=== PATIENT | female | born 1945 | race Caucasian/White ===

== ENCOUNTER 2018-06-12 13:29 | Emergency (ER) | payer MEDICARE ==
[~2018-06-12] VITALS: Ht 157.5 cm; Wt 65.5 kg
[~2018-06-12 13:29] MED LIST: ASPI-535 PO; CARV6.2579 PO; GLIMEPIRIDE; LISINOPRIL; LOSA50TA2 PO; METFORMIN; NIFE30TA8 PO; ZOC10 PO
[2018-06-12 13:31] VITALS: Ht 157.5 cm; Wt 65.5 kg
[2018-06-12 13:58] VITALS: BP 176/87; PULSE 76; RESP 18
[2018-06-12] MEDS ORDERED: ASPI-903 PO (14:41)
[2018-06-12] MEDS ORDERED: BEN20I IM (14:42)
[2018-06-12] MEDS ORDERED: DICY10CA40 PO (14:42)
[2018-06-12] MEDS ORDERED: METF-849 PO (14:43)
[2018-06-12] MEDS ORDERED: LOSA100T15 PO (14:43)
[2018-06-12] MEDS ORDERED: GABA300C16 PO (14:44)
[2018-06-12] MEDS ORDERED: SITA50TA2 PO (14:44)
[2018-06-12] MEDS ORDERED: ONDA4TAB95 PO (14:44)
[2018-06-12] MEDS ORDERED: SIMV40TA2 PO (14:45)
--- NOTE | 2018-06-12 15:42 | ERD ---
ER Documentation Chief Complaint Chief Complaint GROUND LEVEL FALL YESTERDAY HEMATOMA/SWELLING TO LEFT EYE. DIZZINESS +KO HPI This is a 72-year-old female with a past medical history of hypertension, hyperlipidemia, diabetes, coronary artery disease status post CABG, congestive heart failure who is presenting with left periorbital bruising, a mild frontal left-sided headache and slight lightheadedness beginning yesterday after a mechanical fall. The patient was walking when she tripped. She fell forward landing on her knees, left shoulder and face. She reports a few second loss of consciousness. She does report a mild left-sided frontal headache and has bruising to the left side of her face. She does not endorse any vision changes. She is able to range her eyes fully in all directions. She does endorse left-sided paraspinal neck soreness but no midline cervical spine tenderness. She does not endorse any back pain. She does complain of mild bilateral knee soreness and an abrasion to the left knee. She is able to range both knees without issue and has been ambulatory since the incident. The patient also endorses left shoulder pain, but again she has full range of motion to the left shoulder as well. She endorses mild left-sided rib pain but no other chest pain or shortness of breath. The patient denies feeling sick recently. The patient denies fever or chills. The patient denies nausea or vomiting. The patient denies abdominal pain. The patient denies changes to bowel movements or urination. The patient has had no focal deficits. The patient has had no weakness or numbness or tingling to the face or extremities. ROS All systems reviewed and are negative except as per history of present illness. Medications Home Meds Reported Medications Simvastatin* (Zocor*) 40 Mg Tablet, 40 MG PO QHS, #30 TAB 06/12/18 Ondansetron Hcl* (Ondansetron Hcl*) 4 Mg Tablet, 4 MG PO Q8 PRN for NAUSEA AND/OR VOMITING, TAB 06/12/18 Gabapentin* (Gabapentin*) 300 Mg Capsule, 300 MG PO TID, #90 CAP 06/12/18 Sitagliptin* (Januvia*) 50 Mg Tablet, 50 MG PO DAILY, #30 TAB 06/12/18 Metformin* (Glucophage*) 500 Mg Tab, 500 MG PO BID, #90 TAB 06/12/18 Losartan Potassium* (Losartan Potassium*) 100 Mg Tablet, 100 MG PO DAILY, TAB 06/12/18 Dicyclomine HCl (Dicyclomine HCl) 10 Mg Capsule, 10 MG PO DAILY PRN for ABDOMINAL PAIN 06/12/18 Aspirin* (Aspirin* Chew) 81 Mg Tab.chew, 81 MG PO DAILY, TAB.CHEW 06/12/18 Discontinued Reported Medications Dicyclomine Hcl* (Bentyl*) 10 Mg/Ml Soln, 20 MG IM, AMP 06/12/18 Aspirin Ec (Aspir 81) 81 Mg Tablet.dr, 81 MG PO DAILY 03/17/12 Losartan Potassium* (Cozaar*) 50 Mg Tablet, 50 MG PO DAILY 03/17/12 Carvedilol* (Carvedilol*) 6.25 Mg Tablet, 6.25 MG PO BID 03/17/12 Nifedipine (Nifedical XL*) 30 Mg/Bottle Tab.osm.24, 30 MG PO DAILY 03/17/12 Simvastatin (Simvastatin) 10 Mg Tablet, 10 MG PO DAILY 03/17/12 [Lisinopril] No Conflict Check 03/02/12 [Glimepiride] No Conflict Check 03/02/12 [Metformin] No Conflict Check 03/02/12 Allergies Allergies: Coded Allergies: Penicillins (Verified Allergy, Mild, rash and vomiting, 03/18/12) morphine (Verified Allergy, Mild, rash and vomiting, 03/18/12) diazepam (Verified Allergy, 03/03/12) Uncoded Allergies: PENICILLIN (Allergy, 03/03/12) PMhx/Soc History of Surgery: No Anesthesia Reaction: No Hx Neurological Disorder: No Hx Respiratory Disorders: No Hx Cardiac Disorders: Yes (HTN, CHF) Hx Psychiatric Problems: No Hx Miscellaneous Medical Probl: Yes (DM, Htn, hyperlipidemia, recent syncope) Hx Alcohol Use: No Hx Substance Use: No Hx Tobacco Use: No Smoking Status: Never smoker FmHx Family History: No diabetes Physical Exam Vitals Vital Signs Date Temp Pulse Resp B/P (MAP) Pulse Ox O2 O2 Flow FiO2 Time Delivery Rate 06/12/18 76 18 176/87 100 Room Air 13:58 (116) 06/12/18 98.8 13:31 Physical Exam Const: No apparent distress, well-developed, well-nourished Head: Normocephalic. Left-sided periorbital ecchymosis. No zepeda sign. Eyes: Normal Conjunctiva. Extraocular movements intact. Pupils equal, round and reactive to light ENT: Normal External Ears, Nose and Mouth. No hemotympanum. Neck: Full range of motion. No meningismus. Resp: Clear to auscultation bilaterally, No wheezes, rales or rhonchi Cardio: Regular rate and rhythm. No murmurs, rubs or gallops Abd: Soft, non tender, non distended. Normal bowel sounds Skin: No petechiae or rashes. Abrasion to the left knee. Back: No midline tenderness. No CVA tenderness Ext: No cyanosis, or edema. Full range of motion to the left shoulder, left knee, right knee Neur: Awake and alert, oriented 4. Cranial nerves intact. No facial droop. Normal strength, sensation and coordination. Psych: Normal Mood and Affect Procedures/MDM MDM The patient's presentation warrants further investigation. Previous medical records, if available, were reviewed. IMAGING Imaging and Radiology interpretation reviewed. CT Head COMPARISON: 03/17/2012 FINDINGS: No acute intracranial hemorrhage is identified. No extra-axial fluid collection is seen. There is no mass effect. No midline shift is identified. The ventricles and sulci are unremarkable. There is no hydrocephalus. A small chronic lacunar infarct is now identified in the right frontal deep white matter. Valente-white junctions are preserved. Atherosclerotic calcifications of the proximal intracranial arteries are noted. Calvarium and skull base are intact. Mastoid air cells and imaged paranasal sinuses grossly clear. IMPRESSION: No evidence of acute intracranial pathology. Chronic right frontal lacunar infarct. Electronically viewed and signed by .Eh Knox MD, on 06/12/2018 14:33 Ct Cervical Spine COMPARISON: CT angiogram neck 03/03/2012 FINDINGS: No acute fracture of the cervical spine. Straightening of the normal lordosis without significant vertebral body subluxation or acute appearing malalignment. Prevertebral soft tissue swelling or foreign body. Mild multilevel disc space narrowing with tiny disc protrusions, however no significant spinal canal stenosis. No significant foraminal narrowing. Moderate calcified arterial atherosclerosis. Interstitial opacities in the lung apices, may be related to central venous congestion. IMPRESSION: No acute fracture of the cervical spine. Straightening of the normal lordosis may be positional or related to muscle spasm. Electronically viewed and signed by Physician Shawn on 06/12/2018 14:37 CXR FINDINGS: The heart is within normal limits. The thoracic aorta is calcified. The patient is status post sternotomy. There are mild left lower lobe linear atelectatic changes. The lungs are otherwise clear. There is no pleural effusion or pneumothorax. IMPRESSION: Mild left lower lobe linear atelectatic changes. Calcified aorta consistent with atherosclerotic disease. Electronically viewed and signed by .Govind Sharpe MD, MD on 06/12/2018 15:11 XR R Shoulder FINDINGS: There are mild degenerative changes involving the acromioclavicular joint with mild joint space narrowing. There is normal osseous mineralization and alignment. No fracture or osseous lesion is identified. The soft tissues are unremarkable. IMPRESSION: Mild degenerative changes of the acromioclavicular joint. Electronically viewed and signed by .Govind Sharpe MD, MD on 06/12/2018 15:11 TREATMENT/DISPOSITION The patient presents after a trauma. She had a mechanical ground-level fall. She endorses a brief few second loss of consciousness after the event, but she was not dizzy or lightheaded prior to the event. The patient's symptoms are not consistent with syncope and I do not feel she requires a syncopal workup. The patient was evaluated fully without evidence of emergent posttraumatic pathology. The patient's CT imaging of the head and cervical spine are unremarkable. The patient has no focal deficits. I've low suspicion for intracranial pathology. I have low suspicion for cerebral ischemia or intracranial hemorrhage. The patient's symptoms are consistent with a possible concussion. At this time, I believe her symptoms to be stable. She may follow- up in an outpatient setting. She is ambulatory without issue. She does not h ave vertiginous symptoms. The patient has no cervical spine tenderness. He can move his neck in all directions without any pain. As stated above, he does not have any focal deficits. He is not altered or intoxicated. He does not have any distracting injuries. The patient's cervical spine was clinically cleared using the Nexus C- spine rule. The patient does not have any saddle anesthesia. He has not been incontinent of urine or stool. He has not had any retention of urine or stool. I have low suspicion for spinal cord injury. The patient's chest x-ray does not reveal any evidence of pneumonia or pneumothorax or pulmonary edema or pleural effusion. The patient's cardiomediastinal silhouette is unremarkable. I do not suspect pericardial effusion. I do not see any mediastinal free air. I have low suspicion for esophageal tear or rupture. The patient does not have a widened mediastinum. The patient does not have chest pain radiating to the back. It does not have a sharp or tearing quality. I have low suspicion for thoracic aortic aneurysm or rupture or dissection. The patient's symptoms are not consistent with pulmonary embolism. The patient does not have any abdominal pain. I have low suspicion for posttraumatic intra-abdominal pathology. The patient's vital signs are unremarkable. I low suspicion for hepatic or splenic or renal trauma. The patient does not have any GI or urinary bleeding. I decreased suspicion for intestinal injury. I have low suspicion for urethral injury. I have low suspicion for extremity injury. There is no evidence of any penetrating injuries. Upon reevaluation of the patient, symptoms have improved. No emergent diagnoses were identified. At this time, I feel that the patient stable for discharge. The patient was instructed to follow-up with a primary care physician in 1-3 days. The patient will be given strict precautions with which to return to the emergency department. Prescriptions: Tylenol The patient's blood pressure was elevated at greater than 120/80 while in the emergency department. The patient was otherwise stable with no evidence of hypertensive urgency or emergency. The patient does not require admission for blood pressure control. I have discussed with the patient the risks of hypertension. I have instructed the patient to return to the ER for any new or worsening symptoms including chest pain, shortness of breath, headache, blurred vision, confusion, nausea, vomiting or LOC. I have advised the patient to follow up with the primary care physician for outpatient monitoring and treatment for hypertension in 1-3 days. Disclaimer: Inadvertent spelling and grammatical errors are likely due to EHR/di ctation software use and do not reflect on the overall quality of patient care. Note that the electronic time recorded on this note does not necessarily reflect the actual time of the patient encounter. Departure Diagnosis: Primary Impression: Fall from ground level Additional Impressions: Head trauma Encounter type: initial encounter Qualified Codes: S09.90XA - Unspecified injury of head, initial encounter Concussion Encounter type: initial encounter Loss of consciousness presence/duration: with LOC of 30 min or less Qualified Codes: S06.0X1A - Concussion with loss of consciousness of 30 minutes or less, initial encounter Periorbital ecchymosis of left eye Encounter type: initial encounter Qualified Codes: S00.12XA - Contusion of left eyelid and periocular area, initial encounter Neck pain Left shoulder pain Chronicity: acute Qualified Codes: M25.512 - Pain in left shoulder Bilateral knee pain Chronicity: acute Qualified Codes: M25.561 - Pain in right knee; M25.562 - Pain in left knee Rib pain on left side Condition: Stable Patient Instructions: Concussion, Fall, Mechanical, Rib Contusion Additional Instructions: Thank you for for coming to [facility] [place] for your care today. Please ask your nurse or provider if you have questions about your care today and do not leave until all your questions have been answered. Please use any medications given as directed and follow-up with your doctor (or the doctor you were referred to) in the next 1-3 days. If you do not have a primary care doctor you may follow up at the [facility] [place], [place] or formerly [facility] (listed below). You may also use motrin and tylenol as needed for fever and/or pain unless instructed otherwise by your provider or nurse. Indications for more urgent follow-up have been discussed, but you may return to the Emergency Department at ANY time for any worrisome or worsening symptoms. If you have abdominal pain, please know that no test or exam you received is perfect and you should follow up within 8 hours for continued pain. If you had any imaging studies today, such as an X-Ray or CT Scan, these studies will be reviewed later by a radiologist. You will be called if there are important findings that were not identified today, so make sure the contact information you provided at registration is correct. If you received any narcotic pain control medicine today, such as Vicodin, Morphine or Dilaudid, your coordination and judgment may be affected for a number of hours. Please do not drive or operate heavy machinery, and you may want someone to assist you at home. If you were given a prescription for narcotic medication, be aware that it is very addictive- use sparingly and only if necessary. PLEASE SEEK FURTHER EVALUATION AND MANAGEMENT AT YOUR DOCTORS OFFICE WITHIN THE NEXT 1-3 DAYS. IT IS YOUR RESPONSIBILITY TO MAKE AN APPOINTMENT FOR FOLOW-UP CARE. IF YOU HAVE A PRIMARY DOCTOR, PLEASE CALL THEIR OFFICE TO SCHEDULE AN APPOINTMENT FOR FOLLOW UP. IF YOU DO NOT HAVE A PRIMARY DOCTOR YOU CAN CALL OUR PHYSICIAN REFERRAL HOTLINE AT IF YOU CAN NOT AFFORD TO SEE A PHYSICIAN YOU CAN CHOSE FROM THE FOLLOWING [facility] CLINICS: [facility] [address] [facility] [address] [facility]. [facility] [address] [facility] [address] [facility] [address] [facility]. [facility]. [address] MAURICE KEBEDE MD Jun 12, 2018 15:31
[2018-06-12] MEDS ORDERED: ACET325T33 PO (15:47)
[2018-06-12] MEDS ORDERED: ACETAMINOPHEN 325 MG TAB PO ONE (16:00)
== END 2018-06-12 16:00 | disposition home or self-care (01) ==
LOC: E/R 13:29
DX: S06.0X1A Concussion with loss of consciousness of 30 minutes or less, initial encounter (principal); S00.12XA Contusion of left eyelid and periocular area, initial encounter; S19.9XXA Unspecified injury of neck, initial encounter; S49.92XA Unspecified injury of left shoulder and upper arm, initial encounter; S89.91XA Unspecified injury of right lower leg, initial encounter; S29.9XXA Unspecified injury of thorax, initial encounter; S80.212A Abrasion, left knee, initial encounter; E11.9 Type 2 diabetes mellitus without complications; I11.0 Hypertensive heart disease with heart failure; I50.9 Heart failure, unspecified; I25.10 Atherosclerotic heart disease of native coronary artery without angina pectoris; W01.0XXA Fall on same level from slipping, tripping and stumbling without subsequent striking against object, initial encounter; Y92.9 Unspecified place or not applicable; Z79.84 Long term (current) use of oral hypoglycemic drugs; Z79.82 Long term (current) use of aspirin; Z95.1 Presence of aortocoronary bypass graft
CPT/HCPCS: 70450; 71045; 72125; 73030